=== PATIENT | female | born 1960 | race Caucasian/White ===

== ENCOUNTER 2016-11-07 09:29 | Emergency (ER) | payer BC ==
[2016-11-07 10:16] VITALS: BP 114/80
--- NOTE | 2016-11-07 10:20 | UC ---
Complaint Female HPI - HPI Summary HPI Summary: urinary frequency x 2 days + fever, chills, no burning , mild left side flank pain - History Of Current Complaint Chief Complaint: UCGU Stated Complaint: FEVER URINARY Time Seen by Provider: 11/07/16 09:41 Hx Obtained From: Patient Hx Last Menstrual Period: 06/14 Onset/Duration: Gradual Onset, Lasting Days - 2, Still Present Timing: Constant Severity Initially: Moderate Severity Currently: Moderate Character: Cramping Aggravating Factor(s): Nothing Associated Signs And Symptoms: Positive: Fever. Negative: Back Pain, Vaginal Bleeding/Discharge, Vaginal Discharge, Nausea, Vomiting(# Of Episodes =), Genital Swelling, Genital Blisters, Retained [place] Body (Specify) - Allergies/Home Medications Allergies/Adverse Reactions: Allergies Allergy/AdvReac Type Severity Reaction Status Date / Time No Known Allergies Allergy Verified 11/07/16 10:02 PMH/Surg Hx/FS Hx/Imm Hx Previously Healthy: Yes Cardiovascular History: Hypertension - Surgical History Surgical History: Yes Surgery Procedure, Year, and Place: R carpal tunnel 1980. L benign breast lump 1986. uterine ablation 2011. tonsilectomy 1966. Gallbladder 2017 - Family History Known Family History: Positive: Hypertension - Social History Alcohol Use: Rare Alcohol Amount: on special occasions 1-2, drinks 5-6 x a year at the most Substance Use Type: None Smoking Status (MU): Never Smoked Tobacco Type: Cigarettes Have You Smoked in the Last Year: No Review of Systems Constitutional: Fever, Chills Skin: Negative Eyes: Negative ENT: Negative Respiratory: Negative Cardiovascular: Negative Gastrointestinal: Abdominal Pain All Other Systems Reviewed And Are Negative: Yes Physical Exam Triage Information Reviewed: Yes Appearance: Well-Appearing, No Pain Distress, Well-Nourished Vital Signs: Initial Vital Signs Temp 97.3 F 11/07/16 10:04 Pulse 74 11/07/16 10:04 Resp 18 11/07/16 10:04 BP 114/80 11/07/16 10:04 Pulse Ox 99 11/07/16 10:04 Vital Signs Reviewed: Yes Eyes: Positive: Conjunctiva Clear ENT: Positive: Normal ENT inspection, Hearing grossly normal, Pharynx normal Neck: Positive: Supple, Nontender, No Lymphadenopathy Respiratory: Positive: Chest non-tender, Lungs clear, Normal breath sounds Cardiovascular: Positive: RRR, No Murmur, Pulses Normal Abdomen Description: Positive: Nontender, Soft, CVA Tenderness (L). Negative: CVA Tenderness (R), Distended, Guarding Bowel Sounds: Positive: Present Complaint Female Dx - Differential Dx/Diagnosis Provider Diagnoses: UTI Discharge - Discharge Plan Condition: Stable Disposition: HOME Prescriptions: Sulfamethox/Trimethoprim DS* [Bactrim DS 800/160 TAB*] 1 tab PO BID #20 tab Patient Education Materials: Urinary Tract Infection in Women (ED) Forms: *Work Release Referrals: Chantal Toscano NP [Primary Care Provider] - If Needed
== END 2016-11-07 10:28 | disposition home or self-care (01) ==
LOC: UCCORT 09:29
DX: N39.0 Urinary tract infection, site not specified (principal); I10 Essential (primary) hypertension
CPT/HCPCS: 81003; 87086; 99212; G0463

== ENCOUNTER 2017-04-17 18:29 | Emergency (ER) | payer BC ==
[2017-04-17 18:54] VITALS: BP 115/77
--- NOTE | 2017-04-17 19:25 | UC ---
Respiratory Complaint HPI - HPI Summary HPI Summary: 56 YEAR OLD FEMALE PRESENTS WITH COMPLAINS OF SORE THROAT, COUGH AND CHEST CONGESTION. - History of Current Complaint Chief Complaint: UCRespiratory Stated Complaint: COUGH,FEVER Time Seen by Provider: 04/17/17 19:25 Hx Obtained From: Patient Hx Last Menstrual Period: 06/14 Onset/Duration: Sudden Onset Severity Initially: Moderate Severity Currently: Moderate Pain Scale Used: 0-10 Numeric - 5 Character: Cough: Nonproductive Alleviating Factors: Bronchodilator Associated Signs And Symptoms: Positive: Fever, Chills, Nasal Congestion - Allergies/Home Medications Allergies/Adverse Reactions: Allergies Allergy/AdvReac Type Severity Reaction Status Date / Time No Known Allergies Allergy Verified 04/17/17 18:54 PMH/Surg Hx/FS Hx/Imm Hx Previously Healthy: Yes - Surgical History Surgical History: Yes Surgery Procedure, Year, and Place: R carpal tunnel 1980. L benign breast lump 1986. uterine ablation 2011. tonsilectomy 1966 - Family History Known Family History: Positive: Hypertension - Social History Alcohol Use: Rare Alcohol Amount: on special occasions 1-2, drinks 5-6 x a year at the most Substance Use Type: None Smoking Status (MU): Never Smoked Tobacco Type: Cigarettes Have You Smoked in the Last Year: No - Immunization History Most Recent Influenza Vaccination: CURRENT Review of Systems Constitutional: Negative Skin: Negative Eyes: Negative ENT: Sore Throat, Nasal Discharge, Sinus Congestion, Sinus Pain/Tenderness Respiratory: Negative Cardiovascular: Negative Gastrointestinal: Negative Genitourinary: Negative Motor: Negative Neurovascular: Negative Musculoskeletal: Negative Neurological: Negative Psychological: Negative All Other Systems Reviewed And Are Negative: Yes Physical Exam Triage Information Reviewed: Yes Vital Signs: Initial Vital Signs Temp 36.6 C 04/17/17 18:51 Pulse 92 04/17/17 18:51 Resp 18 04/17/17 18:51 BP 115/77 04/17/17 18:51 Pulse Ox 99 04/17/17 18:51 Vital Signs Reviewed: Yes Eye Exam: Normal ENT Exam: Normal ENT: Positive: Pharyngeal erythema, Nasal congestion, Nasal drainage, Sinus tenderness Dental Exam: Normal Neck exam: Normal Neck: Positive: Supple Respiratory Exam: Normal Respiratory: Positive: Rhonchi, Wheezing Cardiovascular Exam: Normal Abdominal Exam: Normal Musculoskeletal Exam: Normal Neurological Exam: Normal Psychological Exam: Normal Skin Exam: Normal UC Diagnostic Evaluation - Laboratory O2 Sat by Pulse Oximetry: 99 Respiratory Course/Dx - Differential Dx/Diagnosis Provider Diagnoses: BRONCHITIS. SINUS CONGESTION. SORE THROAT Discharge - Discharge Plan Condition: Stable Disposition: HOME Prescriptions: Albuterol HFA INHALER* [Ventolin HFA Inhaler*] 1 puff INH Q6H PRN #1 mdi PRN Reason: Wheezing Azithromyxin CLAY (NF) [Z-Clay (Zithromax) 250 mg tabs #6] 2 tab PO .TODAY, THEN 1 DAILY #6 tab Guaifenesin-Codeine [Cheratussin AC] 1 teasp PO BEDTIME PRN #120 ml MDD 5 ml PRN Reason: Cough Methylprednisolone [Medrol Dosepak 4 MG*] 4 mg PO .SEE CLAY INSTRUCTION #21 tab Patient Education Materials: Acute Bronchitis (ED), Bronchospasm (ED) Referrals: Chantal Toscano NP [Primary Care Provider] -
== END 2017-04-17 19:42 | disposition home or self-care (01) ==
LOC: UCCORT 18:29
DX: J40 Bronchitis, not specified as acute or chronic (principal); J32.9 Chronic sinusitis, unspecified; J02.9 Acute pharyngitis, unspecified
CPT/HCPCS: 99212; G0463

== ENCOUNTER 2017-09-27 16:48 | Emergency (ER) | payer BC ==
[2017-09-27 17:17] VITALS: BP 116/80
--- NOTE | 2017-09-27 17:27 | UC ---
Throat Pain/Nasal Mir HPI - HPI Summary HPI Summary: 1 day history of fever, temp to 101, with myalgias, sinus drainage and right ear pain. 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 - History of Current Complaint Chief Complaint: UCGeneralIllness Stated Complaint: FEVER, SORE THROAT, RIGHT EAR PAIN Time Seen by Provider: 09/27/17 17:14 Hx Obtained From: Patient Hx Last Menstrual Period: 06/14 ?: No Onset/Duration: Sudden Onset, Lasting Days - 1 Severity: Moderate Pain Intensity: 4 Cough: Nonproductive - Epiglottits Risk Factors Epiglottis Risk Factors: Negative - Allergies/Home Medications Allergies/Adverse Reactions: Allergies Allergy/AdvReac Type Severity Reaction Status Date / Time No Known Allergies Allergy Verified 04/17/17 18:54 Home Medications: Home Medications Acetaminophen [APAP] 650 mg PO Q8H 09/27/17 [History Confirmed 09/27/17] PMH/Surg Hx/FS Hx/Imm Hx Previously Healthy: Yes Cardiovascular History: Hypertension GI/ History: Gastroesophageal Reflux Psychological History: Depression - Surgical History Surgical History: Yes Surgery Procedure, Year, and Place: R carpal tunnel 1980. L benign breast lump 1986. uterine ablation 2011. tonsilectomy 1966. PARTIAL THYROIDECTOMY. [facility] - Family History Known Family History: Positive: Cardiac Disease - father of CHF, Hypertension, Diabetes - father, Renal Disease - father had renal failure/ dialysis - Social History Occupation: Employed Full-time Lives: With Family Alcohol Use: Rare Alcohol Amount: on special occasions 1-2, drinks 5-6 x a year at the most Substance Use Type: None Smoking Status (MU): Never Smoked Tobacco Type: Cigarettes Have You Smoked in the Last Year: No - Immunization History Most Recent Influenza Vaccination: CURRENT 2016/2017 Review of Systems Constitutional: Fever Skin: Negative Eyes: Negative ENT: Sore Throat, Ear Ache, Nasal Discharge, Sinus Congestion Respiratory: Cough Cardiovascular: Negative Gastrointestinal: Negative Genitourinary: Negative Motor: Negative Neurovascular: Negative Musculoskeletal: Myalgia Neurological: Negative Psychological: Negative Is Patient Immunocompromised?: No All Other Systems Reviewed And Are Negative: Yes Physical Exam Triage Information Reviewed: Yes Appearance: Ill-Appearing Vital Signs: Initial Vital Signs Temp 98.8 F 09/27/17 17:10 Pulse 59 09/27/17 17:10 Resp 15 09/27/17 17:10 BP 116/80 09/27/17 17:10 Pulse Ox 100 09/27/17 17:10 ENT: Positive: Pharyngeal erythema - past tonsillectomy, TM dull, TM red - on the left. Neck: Positive: Supple, Nontender, No Lymphadenopathy Respiratory: Positive: Lungs clear, Normal breath sounds Cardiovascular: Positive: RRR, No Murmur Psychological Exam: Normal Skin Exam: Normal Throat Pain/Nasal Course/Dx - Course Course Of Treatment: amoxicillin for treatment of acute sinusitis - Differential Dx/Diagnosis Differential Diagnosis/HQI/PQRI: Otitis Media, Pharyngitis, Sinusitis Provider Diagnoses: acute sinusitis. Discharge - Sign-Out/Discharge Documenting (check all that apply): Discharge/Admit/Transfer - Discharge Plan Condition: Stable Disposition: HOME Prescriptions: Amoxicillin PO (*) [Amoxicillin 875 MG (*)] 875 mg PO BID #14 tab Patient Education Materials: Sinusitis (ED) Forms: *Work Release Referrals: Chantal Toscano NP [Primary Care Provider] - Additional Instructions: begin amoxicillin for treatment of sinusitis, early ear infection. Use ibuprofen as needed to reduce fever. - Billing Disposition and Condition Condition: STABLE Disposition: Home
== END 2017-09-27 17:49 | disposition home or self-care (01) ==
LOC: UCCORT 16:48
DX: J01.90 Acute sinusitis, unspecified (principal); I10 Essential (primary) hypertension
CPT/HCPCS: 99212; G0463

== ENCOUNTER 2017-10-02 15:10 | Emergency (ER) | payer BC ==
[2017-10-02 15:24] VITALS: BP 122/83
--- NOTE | 2017-10-02 16:07 | UC ---
Respiratory Complaint HPI - HPI Summary HPI Summary: 56 yo female on about day # 4 or 5 of amoxicillin for sinusitis Since being seen her cough has moved down to her chest no CP or SOB right ear plugged/decreased hearing no longer febrile - History of Current Complaint Chief Complaint: UCGeneralIllness Stated Complaint: COUGH Time Seen by Provider: 10/02/17 15:40 Hx Last Menstrual Period: 06/14 Pain Intensity: 0 - Allergies/Home Medications Allergies/Adverse Reactions: Allergies Allergy/AdvReac Type Severity Reaction Status Date / Time No Known Allergies Allergy Verified 04/17/17 18:54 PMH/Surg Hx/FS Hx/Imm Hx Previously Healthy: Yes Cardiovascular History: Hypertension GI/ History: Gastroesophageal Reflux Psychological History: Depression - Surgical History Surgical History: Yes Surgery Procedure, Year, and Place: R carpal tunnel 1980. L benign breast lump 1986. uterine ablation 2011. tonsilectomy 1966. PARTIAL THYROIDECTOMY. [facility] - Family History Known Family History: Positive: Cardiac Disease - father of CHF, Hypertension, Diabetes - father, Renal Disease - father had renal failure/ dialysis - Social History Alcohol Use: Rare Alcohol Amount: on special occasions 1-2, drinks 5-6 x a year at the most Substance Use Type: None Smoking Status (MU): Never Smoked Tobacco Type: Cigarettes Have You Smoked in the Last Year: No - Immunization History Most Recent Influenza Vaccination: CURRENT 2016/2017 Review of Systems Constitutional: Fever - resolved Skin: Negative Eyes: Negative ENT: Ear Ache, Nasal Discharge, Sinus Congestion Respiratory: Cough Cardiovascular: Negative Gastrointestinal: Negative Genitourinary: Negative Motor: Negative Neurovascular: Negative Musculoskeletal: Negative Neurological: Negative Psychological: Negative Is Patient Immunocompromised?: No All Other Systems Reviewed And Are Negative: Yes Physical Exam Triage Information Reviewed: Yes Appearance: Well-Appearing, No Pain Distress, Well-Nourished Vital Signs: Initial Vital Signs Temp 98.7 F 10/02/17 15:18 Pulse 60 10/02/17 15:18 Resp 15 10/02/17 15:18 BP 122/83 10/02/17 15:18 Pulse Ox 100 10/02/17 15:18 Eyes: Positive: Conjunctiva Clear ENT: Positive: Pharyngeal erythema, Nasal congestion, TM bulging - R, Sinus tenderness - left ethmoid. Negative: Hearing grossly normal - decreased hearing right ear, TM red, Tonsillar swelling, Tonsillar exudate, Trismus, Muffled voice, Hoarse voice, Dental tenderness Dental: Positive: Other: - upper plate Neck: Positive: Supple, Nontender, No Lymphadenopathy Respiratory: Positive: Lungs clear, Normal breath sounds, No respiratory distress, No accessory muscle use, Wheezing - with forced expiration Cardiovascular: Positive: RRR, No Murmur Musculoskeletal: Positive: ROM Intact, No Edema Neurological: Positive: Alert Psychological Exam: Normal Skin Exam: Normal UC Diagnostic Evaluation - Laboratory O2 Sat by Pulse Oximetry: 100 - normal/not hypoxic - Ultrasound Ultrasound Interpretation: No Acute Changes - CXR Ultrasound Interpretation Completed By: Radiologist Respiratory Course/Dx - Differential Dx/Diagnosis Provider Diagnoses: acute bronchitis. right PJ Discharge - Sign-Out/Discharge Documenting (check all that apply): Discharge/Admit/Transfer - Discharge Plan Condition: Stable Disposition: HOME Referrals: Chantal Toscano NP [Primary Care Provider] - - Billing Disposition and Condition Condition: STABLE Disposition: Home
--- NOTE | 2017-10-02 16:18 | RAD ---
INDICATION: Productive cough COMPARISON: Most recent comparison chest x-rays dated February 07, 2015 TECHNIQUE: PA and lateral views of the chest were obtained. FINDINGS: The heart and mediastinum are normal in size and contour. The lungs are grossly clear. There is no evidence of large pleural effusion. Visualized bones are normal for the patient's age. There is no radiographic evidence of free air beneath the diaphragm IMPRESSION: No radiographic evidence of acute cardiopulmonary disease.
[2017-10-02] MEDS ORDERED: predniSONE TAB* 20 MG PO ONE (16:29)
[2017-10-02] MEDS ORDERED: Albuterol HFA INHALER* 8 gm MDI INH ONE (16:29)
== END 2017-10-02 16:41 | disposition home or self-care (01) ==
LOC: UCCORT 15:10
DX: J20.9 Acute bronchitis, unspecified (principal); H65.91 Unspecified nonsuppurative otitis media, right ear; I10 Essential (primary) hypertension; K21.9 Gastro-esophageal reflux disease without esophagitis; F32.9 Major depressive disorder, single episode, unspecified
CPT/HCPCS: 71046; 99213; A9270-GY; G0463; J7512

== ENCOUNTER 2017-11-06 11:50 | Emergency (ER) | payer BC ==
[2017-11-06 12:23] VITALS: BP 106/76
--- NOTE | 2017-11-06 12:42 | UC ---
Throat Pain/Nasal Mir HPI - HPI Summary HPI Summary: 57 y/o female presents to the urgent care c/o B/L ear pain LF>RT, sore throat for the past 2 days. Pt her grand daughter has been recently Dx w/ tonsillitis. Pt states mild sinus congestion w/ yellowish nasal discharge. Pt has taken Ibuprofen PO to alleviate symptoms. Ear pain is 7/10. Pt denies fever, SOB, wheezing, cough, chest pain, DOW, abdominal pain, N/V/D. - History of Current Complaint Chief Complaint: UCRespiratory Stated Complaint: EARS, SORE THROAT Time Seen by Provider: 11/06/17 12:40 Hx Obtained From: Patient ?: No - Menopausal Onset/Duration: Gradual Onset, Lasting Days - 2 days, Still Present, Worse Since - today Severity: Moderate Pain Intensity: 7 - B/L ear pain and sore throat Pain Scale Used: 0-10 Numeric Cough: None Associated Signs & Symptoms: Positive: Dysphagia, Nasal Discharge, Other - B/L ear pain - Epiglottits Risk Factors Epiglottis Risk Factors: Negative - Allergies/Home Medications Allergies/Adverse Reactions: Allergies Allergy/AdvReac Type Severity Reaction Status Date / Time No Known Allergies Allergy Verified 11/06/17 12:17 Home Medications: Home Medications Ibuprofen TAB* [Advil TAB*] 1,000 mg PO Q6H PRN 11/06/17 [History Confirmed ] PMH/Surg Hx/FS Hx/Imm Hx Previously Healthy: Yes Cardiovascular History: Hypertension GI/ History: Gastroesophageal Reflux Psychological History: Anxiety, Depression - Surgical History Surgical History: Yes Surgery Procedure, Year, and Place: R carpal tunnel 1980. L benign breast lump 1986. uterine ablation 2011. tonsilectomy 1966. PARTIAL THYROIDECTOMY. [facility] - Family History Known Family History: Positive: Cardiac Disease - father of CHF, Hypertension, Diabetes - father, Renal Disease - father had renal failure/ dialysis - Social History Occupation: Employed Full-time Lives: With Family Alcohol Use: Rare Alcohol Amount: on special occasions 1-2, drinks 5-6 x a year at the most Substance Use Type: None Smoking Status (MU): Former Smoker Type: Cigarettes Have You Smoked in the Last Year: No - Immunization History Most Recent Influenza Vaccination: CURRENT 2016/2017 Review of Systems Constitutional: Negative Skin: Negative Eyes: Negative ENT: Sore Throat, Ear Ache - B/L ear pain, Nasal Discharge - yellowish Respiratory: Negative Cardiovascular: Negative Gastrointestinal: Negative Genitourinary: Negative Motor: Negative Neurovascular: Negative Musculoskeletal: Negative Neurological: Negative Psychological: Negative Is Patient Immunocompromised?: No All Other Systems Reviewed And Are Negative: Yes Physical Exam - Summary Physical Exam Summary: Vital signs: reviewed General: well developed, well nourished female sitting in the examining table w/ o any apparent distress Skin: [place], warm and dry, no evidence of atopic dermatitis, psoriasis, seborrhea. HEENT: -Head: atraumatic, non tender; no scalp dermatitis. -Eyes: sclera and conjunctiva clear, PERRLA, EOMI -Ears: no pre- or postauricular lymphadenopathy or erythema; LF external ear canal clear, LF TM injected w/ erythema and purulent discharge. RT external ear canal clear and RT TM mild bulging . Good light reflex. No fluid level, vesicles , or bullae. No perforation. -Nose/Face: erythematous and edematous nasal mucosa with clear rhinorrhea, no frontal or maxillary sinus tender to palpation. -Mouth/Throat: Mucous membrane moist, posterior pharynx clear, no erythema or exudates. Neck: supple, FROM, nontender, no lymphadenopathy, no meningismus. Chest: Clear to auscultation, normal breath sounds Abd: soft, Bowel sounds active, Nontender. Back: no spinal or CVAT Neuro: A&O x4, GCS 15, no focal neuro deficits, normal behavior for age. Triage Information Reviewed: Yes Vital Signs: Initial Vital Signs Temp 98 F 11/06/17 12:18 Pulse 87 11/06/17 12:18 Resp 16 11/06/17 12:18 BP 106/76 11/06/17 12:18 Pulse Ox 98 11/06/17 12:18 Throat Pain/Nasal Course/Dx - Course Course Of Treatment: 57 y/o female presents to the urgent care c/o B/L ear pain LF>RT, sore throat for the past 2 days. Pt her grand daughter has been recently Dx w/ tonsillitis. Pt states mild sinus congestion w/ yellowish nasal discharge. Pt has taken Ibuprofen PO to alleviate symptoms. Ear pain is 7/10. Pt denies fever, SOB, wheezing, cough, chest pain, DOW, abdominal pain, N/V/D. Hx obtained. Pt w/ LF otitis media and pharyngitis on examination.Pt Rx Amoxicillin PO. Advised to continue taking Ibuprofen PO for pain. Advised if symptoms do not improve or worsen to return to the urgent care or f/u with [facility] for further management. Pt understood and agreed with D/C instructions. - Differential Dx/Diagnosis Differential Diagnosis/HQI/PQRI: Laryngitis, Otitis Media, Pharyngitis, Sinusitis, Tonsillitis, URI Provider Diagnoses: 1- Acute LF otitis media. 2-pharyngitis Discharge - Sign-Out/Discharge Documenting (check all that apply): Patient Departure - D/c home - Discharge Plan Condition: Stable Disposition: HOME Prescriptions: Amoxicillin PO (*) [Amoxicillin 875 MG (*)] 875 mg PO BID #14 tab Fluconazole [Fluconazole 150 mg tab] 150 mg PO ONCE #1 tablet Patient Education Materials: Ear Infection (ED) Referrals: Chantal Toscano [employer] [Primary Care Provider] - 3 Days Additional Instructions: 1- Please take the full course of the antibiotic to avoid resistance. 2-Please continue taking ibuprofen/Tylenol PO q6-8hrs prn as instructed after meals to alleviate pain and swelling. Increase fluid intake, eat well, rest . 3-If symptoms do not improve or worsen please return to the urgent care or f/u with your PCP 3 days for further evaluation and treatment. - Billing Disposition and Condition Condition: STABLE Disposition: Home
== END 2017-11-06 13:00 | disposition home or self-care (01) ==
LOC: UCCORT 11:50
DX: H66.92 Otitis media, unspecified, left ear (principal); J02.9 Acute pharyngitis, unspecified; I10 Essential (primary) hypertension; Z87.891 Personal history of nicotine dependence
CPT/HCPCS: 99212; G0463

== ENCOUNTER 2019-07-01 14:58 | Emergency (ER) | payer BC ==
[2019-07-01 15:19] VITALS: BP 115/84
--- NOTE | 2019-07-01 16:11 | UC ---
Respiratory Complaint HPI - HPI Summary HPI Summary: Per records analyst: "Cough, congestion, headaches, sore throat that all started yesterday. " -started yesterday. cough is biggest issue. temp at work yesterday was 99.4 w/o fever reducers -works at [employer]. no known infected pts w/ covid, flu or swab contacts [place]. -no concerning travel -did not take fever reducter today + body aches. feels like she got hit by a truck -quit smoking when she was young -no asthma or copd. -doesnt need inhalers - History of Current Complaint Chief Complaint: UCGeneralIllness Stated Complaint: COUGH,CONGESTION Time Seen by Provider: 07/01/19 16:05 Hx Last Menstrual Period: 06/14 Pain Intensity: 8 - Allergies/Home Medications Allergies/Adverse Reactions: Allergies Allergy/AdvReac Type Severity Reaction Status Date / Time No Known Allergies Allergy Verified 07/01/19 15:18 Home Medications: Home Medications amLODIPine TAB* [Norvasc 5 mg TAB*] 5 mg PO QPM 03/09/15 [History Confirmed ] Ibuprofen TAB* [Advil TAB*] 1,000 mg PO Q6H PRN 11/06/17 [History Confirmed ] Escitalopram Oxalate [Lexapro] 20 mg PO DAILY 07/01/19 [History Confirmed ] Levothyroxine Sodium 25 mcg PO DAILY 07/01/19 [History Confirmed 07/01/19] Omeprazole 20 mg PO DAILY 07/01/19 [History Confirmed 07/01/19] PMH/Surg Hx/FS Hx/Imm Hx Cardiovascular History: Hypertension - Surgical History Surgical History: Yes Surgery Procedure, Year, and Place: R carpal tunnel 1980. L benign breast lump 1986. uterine ablation 2011. tonsilectomy 1966. PARTIAL THYROIDECTOMY. [facility] - Family History Known Family History: Positive: Cardiac Disease - father of CHF, Hypertension, Diabetes - father, Renal Disease - father had renal failure/ dialysis Negative: Respiratory Disease - no asthma - Social History Alcohol Use: Rare Alcohol Amount: on special occasions 1-2, drinks 5-6 x a year at the most Substance Use Type: None Smoking Status (MU): Former Smoker Type: Cigarettes Have You Smoked in the Last Year: No - Immunization History Most Recent Influenza Vaccination: CURRENT Review of Systems All Other Systems Reviewed And Are Negative: Yes Constitutional: Positive: Fatigue. Negative: Fever, Chills Skin: Positive: Negative. Negative: Rash Eyes: Positive: Negative ENT: Positive: Sore Throat - 5/10. Negative: Sinus Congestion Respiratory: Positive: Cough. Negative: Shortness Of Breath Cardiovascular: Positive: Negative. Negative: Palpitations, Chest Pain Gastrointestinal: Positive: Negative. Negative: Abdominal Pain, Vomiting, Diarrhea, Nausea Genitourinary: Positive: Negative. Negative: Dysuria Motor: Positive: Negative Neurovascular: Positive: Negative Musculoskeletal: Positive: Negative Neurological/Mental Status: Positive: Negative Psychological: Positive: Negative Is Patient Immunocompromised?: No Physical Exam Triage Information Reviewed: Yes Appearance: Ill-Appearing - mildly bc cough. not SOB. Vital Signs: Initial Vital Signs Temp 97 F 07/01/19 15:14 Pulse 73 07/01/19 15:14 Resp 14 07/01/19 15:14 BP 115/84 07/01/19 15:14 Pulse Ox 100 07/01/19 15:14 Vital Signs Reviewed: Yes Eye Exam: Normal Eyes: Positive: Conjunctiva Clear ENT: Positive: Pharyngeal erythema - mid, + PND,, TMs normal, Uvula midline. Negative: Tonsillar swelling, Tonsillar exudate, Sinus tenderness Neck exam: Normal Neck: Positive: Supple, Nontender, No Lymphadenopathy Respiratory Exam: Normal Respiratory: Positive: Lungs clear, Normal breath sounds, No respiratory distress, No accessory muscle use. Negative: Crackles, Rhonchi, Stridor, Wheezing Cardiovascular Exam: Normal Cardiovascular: Positive: RRR, Brisk Capillary Refill Abdominal Exam: Normal Abdomen Description: Positive: Nontender, Soft Musculoskeletal Exam: Normal Neurological Exam: Normal Psychological Exam: Normal Skin Exam: Normal Skin: Negative: Rashes Respiratory Course/Dx - Course Course Of Treatment: Rapid flu - neg rapid strep - neg -vital stable. O2 100% -pt states that she feels like previous frequent episodes of bronchitis. albuterol inhaler is usuallt helpful she doesnt have any. she has no fever, she has no known covid contacts, she is not SOB/or difficulty breathing. She is off work for next 4 days. instrcuted cami all PCP immediately for further guidance if she develops fever/sob/difficulty breathing immediately. - Differential Dx/Diagnosis Differential Diagnosis/HQI/PQRI: Bronchitis, Influenza, Lower Resp Infection Provider Diagnosis: Bronchitis Discharge ED - Sign-Out/Discharge Documenting (check all that apply): Patient Departure All imaging exams completed and their final reports reviewed: No Studies - Discharge Plan Condition: Stable Disposition: HOME Patient Education Materials: Acute Bronchitis (ED) Referrals: Chantal Toscano NP [Primary Care Provider] - 3 Days Additional Instructions: Please call your PCP for follow up guidance. Your symptoms should resolve completely before returning to work. You are not scheduled to RTW until 3 PM. Please call your PCP immediately if you develop any fevers or difficulty breathing or shortness of breath in the coming days/weeks. - Billing Disposition and Condition Condition: STABLE Disposition: Home
[2019-07-01 16:41] LABS: Influenza A Molecular Negative (Negative); Influenza B Molecular Negative (Negative)
== END 2019-07-01 17:04 | disposition home or self-care (01) ==
LOC: UCCORT 14:58
DX: J40 Bronchitis, not specified as acute or chronic (principal); I10 Essential (primary) hypertension; Z87.891 Personal history of nicotine dependence; Z79.899 Other long term (current) drug therapy
CPT/HCPCS: 87651; 99212; G0463